=== PATIENT | female | born 1960 | race Caucasian/White ===

== ENCOUNTER 2017-03-31 01:19 | Inpatient (IN) | payer SELFPAY ==
[2017-03-31] VITALS (7 sets, daily range): BP systolic 144–167; BP diastolic 71–94
[~2017-03-31] VITALS: Ht 167.6 cm; Wt 52.8 kg
--- NOTE | 2017-03-31 03:20 | ED NURSING NOTES ---
Clinical Report - Nurses [facility] [place] [address] [place] [address] 03/31/2017 1:21 Patient: PEGGY RODRIGUEZ TRIAGE Triage time 01:25. Acuity: LEVEL 3. Chief Complaint: SHORTNESS OF BREATH. --01:37 Jacinta Paul R.N. 01:29 03/31/17. BP: 191/91. HR: 88. RR: 20. O2 saturation: 75% on room air. O2 started via nasal cannula at 2 liters/minute. Temp: 97.8 F (oral). Pain level now: 06/04. --01:37 Jacinta Paul R.N. Weight: 52.1 kg stated. Height/Length: 66 inches Per Patient. BMI: 18.5. --01:34 Jacinta Paul R.N. Medications None. --01:35 Jacinta Paul R.N. Allergies No Known Drug Allergy. --01:35 Jacinta Paul R.N. Levofloxacin. Definite Severe(itching) --03:05 Jacinta Paul R.N. History Arrived by private vehicle. Historian: patient. Accompanied by family. Primary physician (none). ( SOB last 2 days, cough for last week pain to right chest under breast). PAST MEDICAL HX: Immunizations: up-to-date. The patient is post-menopausal. SOCIAL HX: Light tobacco smoker (cigarette)- less than 1/2 a pack per day. Occasional alcohol use. No drug use. She has not traveled outside the [place] The patient was not exposed to tuberculosis, influenza, chicken pox, meningitis, MRSA, VRE, C-diff, SARS, Ian flu, H1N1 flu, Ebola or MERS. No infectious disease exposure. ABUSE ASSESSMENT: No report of abuse. SELF HARM ASSESSMENT: A self harm assessment was performed. The patient answered "no" to the question "Have you recently felt down, depressed, or hopeless?", "Have you noticed less interest or pleasure in doing things?", "Do you have thoughts of harming or killing yourself?", "Are you here because you tried to hurt yourself?", "Have you ever tried to hurt yourself before today?", "Have you recently had thoughts about harming or killing others?" and "Do you have any dangerous items in your possession?". FALL RISK ASSESSMENT: Fall risk assessment completed. No fall risk identified. NUTRITIONAL RISK ASSESSMENT: The nutritional risk assessment revealed no deficiencies. FUNCTIONAL ASSESSMENT: Functional assessment: no impairments noted. LEARNING NEEDS ASSESSMENT: The learning needs assessment revealed no barriers. SKIN INTEGRITY ASSESSMENT: Skin integrity risk assessment completed. No skin integrity risk identified. --01:37 Jacinta Paul R.N. PROBLEMS: Bronchitis. Corneal Ulcer. Tetanus Status. Wears Contacts. Corneal Abrasion. Hypertension. --01:35 Jacinta Paul R.N. ADDITIONAL SURGERIES: . --01:35 Jacinta Paul R.N. Interventions ID band on patient. --01:37 Jacinta Paul R.N. PHYSICAL ASSESSMENT Ambulatory to room. GENERAL / NEURO / PSYCH: Alert. Oriented X 4. Appears in distress. HEENT: Mucous membranes are pink. RESPIRATORY: Moderate respiratory distress. The patient can speak a few words at a time. Decreased breath sounds in the bases bilaterally. Fine crackles in the right mid-lung posteriorly. CVS: Normal sinus rhythm noted. Capillary refill less than 2 seconds. GI / : Abdomen soft and nontender. Bowel sounds within normal limits. SKIN: Skin is warm and dry. Normal skin turgor. --01:38 Jacinta Paul R.N. NURSING PROGRESS NOTES Oxygen administered by nasal cannula at 2 liters. Monitoring of patient in place. Patient gowned. Reassurance given to the patient. Two patient identifiers checked. Call light placed in reach. Side rails up x 1. Bed placed in lowest position. Brakes of bed on. Patient ready for evaluation- chart flagged. --01:39 Jacinta Paul R.N. 01:39 03/31/17. BP: 188/128 taken on the left arm, while lying. HR: 86 (regular and normal rate). RR: 22 (regular and unlabored). O2 saturation: 93% on nasal cannula at 2 liters/minute. Temp: deferred. Pain level now: 06/04. --01:40 Jacinta Paul R.N. 01:01 03/31/2017 Site #1 started via IV in the right antecubital space with an 18g angiocath, with aseptic technique and good blood return; one attempt. Blood drawn: rainbow set. Labeled in the presence of the patient and sent to the lab. Saline lock flushed with 10 mL saline. --02:01 Jacinta Paul R.N. 01:52 03/31/2017 Started bag #1 1000 mL IV Fluids IV NS (Saline); bolus of 1000 mL wide open then over 1 hour(s) via site #1. Allergies verified and confirmed 5 rights. IV patency established. IV site checked: no pain, redness, or swelling. IV flushed thoroughly pre- and post-medication administration. --02:02 Jacinta Paul R.N. 02:02 03/31/2017 Toradol IVP 30 mg given over 2 minute(s) via site #1. Allergies verified and confirmed 5 rights. IV patency established. IV site checked: no pain, redness, or swelling. IV flushed thoroughly pre- and post-medication administration. IVP given by RN. --02:02 Jacinta Paul R.N. 02:02 03/31/17. BP: 167/90 taken on the left arm, while lying. HR: 82. RR: 20 (regular, labored and rapid). O2 saturation: 94% on nasal cannula at 2 liters/minute. Temp: deferred. Pain level now: 06/04. --02:04 Jacinta Paul R.N. Patient ID band checked for patient name: patient confirmed. Blood samples drawn from the right antecubital space peripheral IV site by nurse per protocol ; labeled in presence of the patient and sent to lab: rainbow set: blood culture (1st set). Line flushed with 10 mL normal saline post blood draw. --02:04 Jacinta Paul R.N. Patient transported to radiology by stretcher with O2 and tech. (02:09). --02:11 Jacinta Paul R.N. 02:54 03/31/2017 IV Fluids IV NS Discontinued: bag #1 completed. Total amount infused: 1000 mL. IV patency established. IV site checked: no pain, redness, or swelling. IV flushed thoroughly. --02:54 Manasa Altamirano R.N. 02:55 03/31/2017 Started 750 mg of Levofloxacin IVPB in bag #1 150 mL; at 100 mL/hr over 90 minute(s) via site #1 via IV pump. Allergies verified and confirmed 5 rights. IV patency established. IV site checked: no pain, redness, or swelling. IV flushed thoroughly pre- and post-medication administration. --02:55 Manasa Altamirano R.N. 02:50 03/31/17. BP: 165/84. HR: 84. RR: 18. O2 saturation: 90% on nasal cannula at 1 liters/minute. Pain level now: 0/10. --02:57 Manasa Altamirano R.N. ( Patient requesting something to eat, oxygen increased back up to 3L). --02:58 Manasa Altamirano R.N. 03:02 03/31/2017 Levofloxacin IVPB Discontinued: STOPPED. Total amount infused: 7ml mL. IV patency established. IV site checked: no pain, redness, or swelling. IV flushed thoroughly. (pt c/o itching in mouth and face and arms, notified and orders recieved). --03:02 Jacinta Paul R.N. 03:03 03/31/2017 Benadryl (DiphenhydrAMINE HCl) IVP 25 mg given over 2 minute(s) via site #1. Allergies verified, confirmed 5 rights and sedative warning given to the patient. IV patency established. IV site checked: no pain, redness, or swelling. IV flushed thoroughly pre- and post-medication administration. IVP given by RN. --03:03 Jacinta Paul R.N. 04:17 03/31/2017 Started 250 mg of Azithromycin IVPB in bag #1 250 mL; at 250 mL/hr over 1 hour(s) via site #1 via IV pump. Allergies verified and confirmed 5 rights. IV patency established. IV site checked: no pain, redness, or swelling. IV flushed thoroughly pre- and post-medication administration. --04:17 Manasa Altamirano R.N. 04:17 03/31/17. BP: 156/91 (regular adult cuff) taken on the left arm. HR: 74. RR: 16. O2 saturation: 96% on nasal cannula at 3 liters/minute. Pain level now: 0/10. --04:18 Manasa Altamirano R.N. 04:00 03/31/17. BP: 156/91 taken on the left arm, while lying. HR: 79 (regular and normal rate). RR: 18 (regular and unlabored). O2 saturation: 93% on nasal cannula at 3 liters/minute. Temp: deferred. Pain level now: 0/10. --04:21 Jacinta Paul R.N. The patient is calm and resting quietly. Overall patient status is improved- she states feels better. RESPIRATORY: No respiratory distress. SKIN: Skin is warm and dry. Skin color within normal limits. --04:21 Jacinta Paul R.N. 04:27 03/31/2017 Azithromycin IVPB Continued: upon admission at the rate of 250 mL/hr. 250 mL remaining bag #1. IV patency established. IV site checked: no pain, redness, or swelling. IV flushed thoroughly. --04:27 Jacinta Paul R.N. 04:28 03/31/2017 Site #[address] upon admission; patent, no pain and no signs of infection or infiltration. Good blood return present. --04:28 Jacinta Paul R.N. DISPOSITION / DISCHARGE Transported via stretcher by [facility] with IV and O2. Report was given to a nurse via a phone call. Report included patient's care, treatment, medications, reviewed medication reconcilliation, and condition (including any recent changes or anticipated changes). All questions were answered. Report was acknowledged and care was transferred. (Lisa MCKEON). Bed obtained and ready (205). --04:31 Jacinta Paul R.N. 04:28 03/31/17. BP: 171/91 taken on the left arm, while lying. HR: 77 (regular and normal rate). RR: 18 (regular and unlabored). O2 saturation: 95% on nasal cannula at 3 liters/minute. Temp: deferred. Pain level now: 12/05. --04:31 Jacinta Paul R.N. Departure time: 04:39. --04:39 Jacinta Paul R.N. Departure time: 5. --04:53 Jacinta Paul R.N. 04:52 03/31/17. BP: deferred. HR: deferred. RR: deferred. O2 saturation: deferred. Temp: deferred. Pain level now deferred. --04:53 Jacinta Paul R.N. Locked/Released at 03/31/2017 4:54 by Jacinta Paul R.N.
--- NOTE | 2017-03-31 03:20 | ED CLINICAL REPORT ---
Clinical Report - Physicians/Mid Levels [facility] [address] [place] [address] 03/31/2017 1:21 Patient: PEGGY RODRIGUEZ Time Seen: 01:32; initial patient contact. Arrived- By private vehicle. Historian- patient. HISTORY OF PRESENT ILLNESS Chief Complaint: DYSPNEA. This started about 2 days ago and is still present. It was gradual in onset and has been constant. The dyspnea is described as moderate. The patient has had a cough and right-sided chest pain. No sputum production, fever, sweating episodes, wheezing or chills. No calf pain, foot swelling or palpitations. Similar symptoms previously: None. Recent medical care: Not recently seen/assessed. REVIEW OF SYSTEMS No nausea, vomiting or headache. All systems otherwise negative, except as recorded above. PAST HISTORY Bronchitis. Corneal Ulcer. Tetanus Status. Wears Contacts. Corneal Abrasion. Hypertension. ADDITIONAL SURGERIES: . SOCIAL HISTORY Current every day smoker. Occasional alcohol use. No drug use. ADDITIONAL NOTES The nursing notes have been reviewed. PHYSICAL EXAM Vital Signs: 03/31/2017 01:29 BP: 191/91. HR: 88. RR: 20. O2 saturation: 75%. Temp: 97.8 F. Pain level now: 8/10. Have been reviewed. Hypertensive. Heart rate normal. Respiratory rate normal. Temperature normal. Oxygen saturation low. Appearance: Alert. No acute distress. Eyes: Eyes normal inspection. ENT: Dry mucous membranes present. CVS: Normal heart rate and rhythm. Heart sounds normal. Respiratory: Mild respiratory distress with accessory muscle use. Mildly prolonged expirations. Moderate rales in the right lung base posteriorly. No decreased air movement or wheezes. Abdomen: Soft and nontender. No organomegaly. The bowel sounds are not abnormal. Back: Normal inspection. No CVA tenderness. Skin: Normal skin color. Extremities: No lower extremity edema. Neuro: Oriented X 3. LABS, X-RAYS, AND EKG Chest X-ray: Consolidated infiltrate in the right lower lobe. Consistent with pneumonia. Interpretation time: 02:33. Laboratory Tests: CBC w Diff: (ELLA: 03/31/2017 01:52) ( [facility] 03/31/2017 02:19) Final results Test Result Flag Units (Reference) WHITE BLOOD COUNT 14.7 H K/uL (4.5-11.5) RED BLOOD COUNT 5.01 M/uL (4.00-5.20) HEMOGLOBIN 16.0 gm/dL (12.0-16.0) HEMATOCRIT 47.8 H % (36.0-46.0) MEAN CELL VOLUME 96 fL (80-100) MEAN CORPUSCULAR HGB 32 pg (26-34) MEAN CORPUSCULAR HGB CONC 33 g/dL (31-37) RED CELL DISTRIBUTION WIDTH 14.6 % (11.6-14.8) PLATELET COUNT 327 K/uL (150-400) NEUTROPHIL % 80.5 H % (50-75) LYMPH % 11.3 L % (25-40) MONO % 7.5 % (3-14) EOSINOPHIL % 0.6 % (0-4) BASOPHIL % 0.1 % (0-2) [id number]: (ELLA: 03/31/2017 01:52) ( [facility] 03/31/2017 02:19) Final results Test Result Flag Units (Reference) D-DIMER QUANTITATIVE < 0.27 L ug/mLFEU (0.27-0.52) The primary value of this quantitative assay relates toits negative predictive value (i.e. exclusion) of pulmonaryembolism/deep vein thrombosis/DIC.Elevated levels of d-dimer may also occur with:, age, cancer, inflammation, liver disease,post-op, infection, hematoma, coronary disease, peripheralarteriopathy, bleeding disorders and thrombolytic treatment.Results should be correlated with other clinical andradiological data.Testing Methodology: Latex Immunoassay BNP: (ELLA: 03/31/2017 01:52) ( [facility] 03/31/2017 02:42) Final results Test Result Flag Units (Reference) B-TYPE NATRIURETIC PEPTIDE 18.2 pg/ml (5-100) [id number]: (ELLA: 03/31/2017 01:52) ( M[facility]cvd 03/31/2017 02:49) Final results Test Result Flag Units (Reference) LACTIC ACID SEPSIS PROTOCOL 0.8 mmol/L (0.4-2.0) [id number]: (ELLA: 03/31/2017 01:52) ( MsgRcvd 03/31/2017 02:41) Final results Test Result Flag Units (Reference) PROCALCITONIN < 0.05 ng/mL (0-0.5) PCT Concentration: Interpretation : Risk/option for action PCT <=0.5 ng/mL : Systemic : Low risk forinfection(sepsis): progression to severeis not likely. : systemic infection.Local bacterial : CAUTION-PCT levelsinfection is : below 0.5 ng/mL do notpossible. : exclude an infection,because localizedinfections (withoutsystemic signs) may beassociated with suchlow levels. If PCT ismeasured very earlyafter a bacterialchallenge (usually <6hours), these valuesmay still be low. Inthis case PCT shouldbe re-assessed 6-24hours later. PCT >0.5 and : Systemic infection: Moderate risk for<= 2 ng/mL : (sepsis) is : progression to severepossible, but : systemic infection.other conditions : The patient should beare known to : closely monitoredelevate PCT. : both clinically andby re-assessing PCTwithin 6-24 hours. PCT > 2 ng/mL : Systemic infection: High risk for(sepsis) is likely: progression to severeunless other : systemic infection.causes are known. : PCT >= 10 ng/mL : Important systemic: High likelihood ofinflammatory : severe sepsis orresponse, almost : septic shock.exclusively due to:severe bacterial :sepsis or septic :shock. : CMP: (ELLA: 03/31/2017 01:52) ( MsgRcvd 03/31/2017 02:34) Final results Test Result Flag Units (Reference) GLUCOSE 115 H mg/dL (70-110) BUN 28 H mg/dL (7-18) CREATININE 1.2 mg/dL (0.6-1.3) Estimated GFR 49.21 mL/min Estimated GFR- 59.65 mL/min Note: Persistent reduction over 3 months in eGFR<60 mL/min/1.73 m2 defines CKD. Patients with eGFR values>=60 mL/min/1.73 m2 may also have CKD if evidence ofpersistent proteinuria. Additional information may be foundat www.kidney.org. SODIUM 143 mmol/L (136-145) POTASSIUM 3.8 mmol/L (3.5-5.1) CHLORIDE 102 mmol/L (98-107) CARBON DIOXIDE 30 mmol/L (21-32) CALCIUM 9.2 mg/dL (8.5-10.1) TOTAL PROTEIN 7.6 g/dL (6.4-8.2) ALBUMIN 3.6 g/dL (3.3-5.0) BILIRUBIN, TOTAL 0.2 mg/dL (0.0-1.0) ALKALINE PHOSPHATASE 88 U/L (46-116) AST (SGOT) 15 U/L (15-37) ALT (SGPT) 19 U/L (12-78) . PROGRESS AND PROCEDURES Discussed case with hospitalist, (call returned 03:23 Dr. Andersen). Reviewed test results and need for additional work-up. Agreed upon decision to admit. Health care provider will see patient in ED. Disposition: Admitted to Acute Care. Condition: good. CLINICAL IMPRESSION Bacterial pneumonia with hypoxemia. Empiric antibiotics given in the ED. No respiratory failure or sepsis. Hypoxia. INSTRUCTIONS Your Current Medications: CONTINUE TAKING THE FOLLOWING MEDICATIONS: None*. Follow-up: Screening today revealed the patient's blood pressure to be in the hypertensive range. The patient was admitted and blood pressure will be managed during the admission. (Electronically signed by Elmo Juarez Dr. 03/31/2017 4:17)
--- NOTE | 2017-03-31 03:20 | ED ORDER SUMMARY ---
..... Patient: PEGGY RODRIGUEZ OrderSheet [facility] VisitID: [id number] [place] [address] 57y, F Registration Date/Time: 03/31/2017 ORDER SHEET Weight: 52.1 kg (stated) Allergies: No Known Drug Allergy, Levofloxacin GENERAL ORDERS: Chest 2V Urgent (01:03/31/2017 Susan Saxena) (Ack 1:56 Christina) (2:11 CBradburn R.N.) Blood Culture (No) (N/A) Urgent (:03/31/2017 Susan Saxena) (Ack 1:56 Christina) (2:00 CBradburn R.N.) CBC w Diff Urgent (:03/31/2017 Susan Saxena) (Ack 1:56 Chritsina) (2:00 Jhonyburn R.N.) CMP Urgent (:03/31/2017 Susan Saxena) (Ack 1:56 RKjessica) (2:00 ALEXANDRAradburn R.N.) D-Dimer Urgent (:03/31/2017 Susan Saxena) (Ack 1:56 Christina) (2:00 ALEXANDRAradburn R.N.) BNP Urgent (:03/31/2017 Susan Saxena) (Ack 1:56 Christina) (2:00 ALEXANDRAradburn R.N.) Lactic Acid for Sepsis Protocol Urgent (:03/31/2017 Susan Saxena) (Ack 1:56 Christina) (2:00 ALEXANDRAradburn R.N.) PCT (Procalcitonin) Urgent (:03/31/2017 Susan Saxena) (Ack 1:56 Christina) (2:00 ALEXANDRAradburn R.N.) MEDICATION ORDERS: IV FLUIDS: IV NS : initial bolus none -, then 1000 mL/hr for X1 (NOW) (01:03/31/2017 Susan Saxena) (2:01 Doug R.N.) Toradol IV 30 mg (NOW) (:03/31/2017 Susan Saxena) (2:02 Doug R.N.) Azithromycin IV 500 mg/250 mL (NOW) (02:41 03/31/2017 Susan Saxena) (Ack 2:45 Lindsey R.N.) (4:17 Lindsey R.N.) Levofloxacin IV 750 mg/150 mL (NOW) (02:41 03/31/2017 Susan Saxena) (Ack 2:45 Lindsey R.N.) (2:55 Santiagos R.N.) Benadryl IV 25 mg (NOW) (03:03 03/31/2017 Doug R.N. verbal order read back to Susan Saxena) (3:03 Doug Multani.) ORDER SHEET NOTES: [Electronically signed by Elmo Juarez Dr. (04:17 03/31/2017)] [Electronically signed by Jacinta Paul R.N. (04:54 03/31/2017)] [Electronically locked/signed by Jacinta Paul R.N. (04:54 03/31/2017)]
--- NOTE | 2017-03-31 03:20 | ED ORDER SUMMARY ---
..... Patient: PEGGY RODRIGUEZ OrderSheet [facility] VisitID: [id number] [place] [address] 57y, F Registration Date/Time: 03/31/2017 ORDER SHEET Weight: 52.1 kg (stated) Allergies: No Known Drug Allergy, Levofloxacin GENERAL ORDERS: Chest 2V Urgent (01:03/31/2017 Susan Saxena) (Ack 1:56 Christina) (2:11 CBradburn R.N.) Blood Culture (No) (N/A) Urgent (:03/31/2017 Susan Saxena) (Ack 1:56 Christina) (2:00 CBradburn R.N.) CBC w Diff Urgent (:03/31/2017 Susan Saxena) (Ack 1:56 Christina) (2:00 Jhonyburn R.N.) CMP Urgent (:03/31/2017 Susan Saxena) (Ack 1:56 RKjessica) (2:00 ALEXANDRAradburn R.N.) D-Dimer Urgent (:03/31/2017 Susan Saxena) (Ack 1:56 Christina) (2:00 ALEXANDRAradburn R.N.) BNP Urgent (:03/31/2017 Susan Saxena) (Ack 1:56 Christina) (2:00 ALEXANDRAradburn R.N.) Lactic Acid for Sepsis Protocol Urgent (:03/31/2017 Susan Saxena) (Ack 1:56 Christina) (2:00 ALEXANDRAradburn R.N.) PCT (Procalcitonin) Urgent (:03/31/2017 Susan Saxena) (Ack 1:56 Christina) (2:00 ALEXANDRAradburn R.N.) MEDICATION ORDERS: IV FLUIDS: IV NS : initial bolus none -, then 1000 mL/hr for X1 (NOW) (01:03/31/2017 Susan Saxena) (2:01 Doug R.N.) Toradol IV 30 mg (NOW) (:03/31/2017 Susan Saxena) (2:02 Doug R.N.) Azithromycin IV 500 mg/250 mL (NOW) (02:41 03/31/2017 Susan Saxena) (Ack 2:45 Lindsey R.N.) (4:17 Lindsey R.N.) Levofloxacin IV 750 mg/150 mL (NOW) (02:41 03/31/2017 Susan Saxena) (Ack 2:45 Lindsey R.N.) (2:55 Santiagos R.N.) Benadryl IV 25 mg (NOW) (03:03 03/31/2017 Doug R.N. verbal order read back to Susan Saxena) (3:03 Doug Multani.) ORDER SHEET NOTES: [Electronically signed by Elmo Juarez Dr. (04:17 03/31/2017)] [Electronically signed by Jacinta Paul R.N. (04:54 03/31/2017)] [Electronically locked/signed by Jacinta Paul R.N. (04:54 03/31/2017)]
--- NOTE | 2017-03-31 03:20 | ED CLINICAL REPORT ---
Clinical Report - Physicians/Mid Levels [facility] [address] [place] [address] 03/31/2017 1:21 Patient: PEGGY RODRIGUEZ Time Seen: 01:32; initial patient contact. Arrived- By private vehicle. Historian- patient. HISTORY OF PRESENT ILLNESS Chief Complaint: DYSPNEA. This started about 2 days ago and is still present. It was gradual in onset and has been constant. The dyspnea is described as moderate. The patient has had a cough and right-sided chest pain. No sputum production, fever, sweating episodes, wheezing or chills. No calf pain, foot swelling or palpitations. Similar symptoms previously: None. Recent medical care: Not recently seen/assessed. REVIEW OF SYSTEMS No nausea, vomiting or headache. All systems otherwise negative, except as recorded above. PAST HISTORY Bronchitis. Corneal Ulcer. Tetanus Status. Wears Contacts. Corneal Abrasion. Hypertension. ADDITIONAL SURGERIES: . SOCIAL HISTORY Current every day smoker. Occasional alcohol use. No drug use. ADDITIONAL NOTES The nursing notes have been reviewed. PHYSICAL EXAM Vital Signs: 03/31/2017 01:29 BP: 191/91. HR: 88. RR: 20. O2 saturation: 75%. Temp: 97.8 F. Pain level now: 8/10. Have been reviewed. Hypertensive. Heart rate normal. Respiratory rate normal. Temperature normal. Oxygen saturation low. Appearance: Alert. No acute distress. Eyes: Eyes normal inspection. ENT: Dry mucous membranes present. CVS: Normal heart rate and rhythm. Heart sounds normal. Respiratory: Mild respiratory distress with accessory muscle use. Mildly prolonged expirations. Moderate rales in the right lung base posteriorly. No decreased air movement or wheezes. Abdomen: Soft and nontender. No organomegaly. The bowel sounds are not abnormal. Back: Normal inspection. No CVA tenderness. Skin: Normal skin color. Extremities: No lower extremity edema. Neuro: Oriented X 3. LABS, X-RAYS, AND EKG Chest X-ray: Consolidated infiltrate in the right lower lobe. Consistent with pneumonia. Interpretation time: 02:33. Laboratory Tests: CBC w Diff: (ELLA: 03/31/2017 01:52) ( [facility] 03/31/2017 02:19) Final results Test Result Flag Units (Reference) WHITE BLOOD COUNT 14.7 H K/uL (4.5-11.5) RED BLOOD COUNT 5.01 M/uL (4.00-5.20) HEMOGLOBIN 16.0 gm/dL (12.0-16.0) HEMATOCRIT 47.8 H % (36.0-46.0) MEAN CELL VOLUME 96 fL (80-100) MEAN CORPUSCULAR HGB 32 pg (26-34) MEAN CORPUSCULAR HGB CONC 33 g/dL (31-37) RED CELL DISTRIBUTION WIDTH 14.6 % (11.6-14.8) PLATELET COUNT 327 K/uL (150-400) NEUTROPHIL % 80.5 H % (50-75) LYMPH % 11.3 L % (25-40) MONO % 7.5 % (3-14) EOSINOPHIL % 0.6 % (0-4) BASOPHIL % 0.1 % (0-2) [id number]: (ELLA: 03/31/2017 01:52) ( [facility] 03/31/2017 02:19) Final results Test Result Flag Units (Reference) D-DIMER QUANTITATIVE < 0.27 L ug/mLFEU (0.27-0.52) The primary value of this quantitative assay relates toits negative predictive value (i.e. exclusion) of pulmonaryembolism/deep vein thrombosis/DIC.Elevated levels of d-dimer may also occur with:, age, cancer, inflammation, liver disease,post-op, infection, hematoma, coronary disease, peripheralarteriopathy, bleeding disorders and thrombolytic treatment.Results should be correlated with other clinical andradiological data.Testing Methodology: Latex Immunoassay BNP: (ELLA: 03/31/2017 01:52) ( [facility] 03/31/2017 02:42) Final results Test Result Flag Units (Reference) B-TYPE NATRIURETIC PEPTIDE 18.2 pg/ml (5-100) [id number]: (ELLA: 03/31/2017 01:52) ( MsgRcvd 03/31/2017 02:49) Final results Test Result Flag Units (Reference) LACTIC ACID SEPSIS PROTOCOL 0.8 mmol/L (0.4-2.0) [id number]: (ELLA: 03/31/2017 01:52) ( MsgRcvd 03/31/2017 02:41) Final results Test Result Flag Units (Reference) PROCALCITONIN < 0.05 ng/mL (0-0.5) PCT Concentration: Interpretation : Risk/option for action PCT <=0.5 ng/mL : Systemic : Low risk forinfection(sepsis): progression to severeis not likely. : systemic infection.Local bacterial : CAUTION-PCT levelsinfection is : below 0.5 ng/mL do notpossible. : exclude an infection,because localizedinfections (withoutsystemic signs) may beassociated with suchlow levels. If PCT ismeasured very earlyafter a bacterialchallenge (usually <6hours), these valuesmay still be low. Inthis case PCT shouldbe re-assessed 6-24hours later. PCT >0.5 and : Systemic infection: Moderate risk for<= 2 ng/mL : (sepsis) is : progression to severepossible, but : systemic infection.other conditions : The patient should beare known to : closely monitoredelevate PCT. : both clinically andby re-assessing PCTwithin 6-24 hours. PCT > 2 ng/mL : Systemic infection: High risk for(sepsis) is likely: progression to severeunless other : systemic infection.causes are known. : PCT >= 10 ng/mL : Important systemic: High likelihood ofinflammatory : severe sepsis orresponse, almost : septic shock.exclusively due to:severe bacterial :sepsis or septic :shock. : CMP: (ELLA: 03/31/2017 01:52) ( MsgRcvd 03/31/2017 02:34) Final results Test Result Flag Units (Reference) GLUCOSE 115 H mg/dL (70-110) BUN 28 H mg/dL (7-18) CREATININE 1.2 mg/dL (0.6-1.3) Estimated GFR 49.21 mL/min Estimated GFR- 59.65 mL/min Note: Persistent reduction over 3 months in eGFR<60 mL/min/1.73 m2 defines CKD. Patients with eGFR values>=60 mL/min/1.73 m2 may also have CKD if evidence ofpersistent proteinuria. Additional information may be foundat www.[email or web address].org. SODIUM 143 mmol/L (136-145) POTASSIUM 3.8 mmol/L (3.5-5.1) CHLORIDE 102 mmol/L (98-107) CARBON DIOXIDE 30 mmol/L (21-32) CALCIUM 9.2 mg/dL (8.5-10.1) TOTAL PROTEIN 7.6 g/dL (6.4-8.2) ALBUMIN 3.6 g/dL (3.3-5.0) BILIRUBIN, TOTAL 0.2 mg/dL (0.0-1.0) ALKALINE PHOSPHATASE 88 U/L (46-116) AST (SGOT) 15 U/L (15-37) ALT (SGPT) 19 U/L (12-78) . PROGRESS AND PROCEDURES Discussed case with hospitalist, (call returned 03:23 Dr. Andersen). Reviewed test results and need for additional work-up. Agreed upon decision to admit. Health care provider will see patient in ED. Disposition: Admitted to Acute Care. Condition: good. CLINICAL IMPRESSION Bacterial pneumonia with hypoxemia. Empiric antibiotics given in the ED. No respiratory failure or sepsis. Hypoxia. INSTRUCTIONS Your Current Medications: CONTINUE TAKING THE FOLLOWING MEDICATIONS: None*. Follow-up: Screening today revealed the patient's blood pressure to be in the hypertensive range. The patient was admitted and blood pressure will be managed during the admission. (Electronically signed by Elmo Juarez Dr. 03/31/2017 4:17)
--- NOTE | 2017-03-31 04:54 | ED DISCHARGE INSTRUCTIONS ---
Patient: PEGGY RODRIGUEZ General Instructions [facility] VisitID: [id number] [place] [address] 57y, F Registration Date/Time: 03/31/2017 Bacterial pneumonia with hypoxemia. Empiric antibiotics given in the ED. No respiratory failure or sepsis. Hypoxia. INSTRUCTIONS Your Current Medications: CONTINUE TAKING THE FOLLOWING MEDICATIONS: None*. Follow-up: Screening today revealed the patient's blood pressure to be in the hypertensive range. The patient was admitted and blood pressure will be managed during the admission. (Electronically signed by Elmo Juarez Dr. 03/31/2017 4:17)
--- NOTE | 2017-03-31 04:54 | ED MAR SUMMARY ---
..... Medication Administration Record [facility] [address] [place] [address] Patient: PEGGY RODRIGUEZ Visit ID: [id number] 57y, F Weight: 52.1 kg Height/Length: 66 in BMI: 18.5 ALLERGIES: No Known Drug Allergy, Levofloxacin Start 01:52 03/31/2017 Jacinta Paul R.N., Stop 02:54 03/31/2017 Manasa Altamirano R.N. Medication Administered: IV NS (SALINE), Dose: IV Fluids over 1 hour(s), Bolus: 1000 mL wide open, Dispensed: 1000 mL bag, Site: #1 right AC. Medication Ordered: IV NS : initial bolus none -, then 1000 mL/hr for X1 (NOW). Given 02:02 03/31/2017 Jacinta Paul R.N. Medication Administered: TORADOL [IVP], Dose: 30 mg IVP over 2 minute(s), Site: #1 right AC. Medication Ordered: Toradol IV 30 mg (NOW). Start 02:55 03/31/2017 Manasa Altamirano R.N., Stop 03:02 03/31/2017 Jacinta Paul R.N. Medication Administered: LEVOFLOXACIN [IVPB], Dose: 750 mg IVPB over 90 minute(s), Rate: 100 mL/hr, Dispensed: 150 mL bag, Site: #1 right AC. Medication Ordered: Levofloxacin IV 750 mg/150 mL (NOW). Given 03:03 03/31/2017 Jacinta Paul R.N. Medication Administered: BENADRYL [IVP] (DIPHENHYDRAMINE HCL), Dose: 25 mg IVP over 2 minute(s), Site: #1 right AC. Medication Ordered: Benadryl IV 25 mg (NOW). Start 04:17 03/31/2017 Manasa Altamirano R.N., Continued Upon Admission 04:27 03/31/2017 Jacinta Paul R.N. Medication Administered: AZITHROMYCIN [IVPB], Dose: 250 mg IVPB over 1 hour(s), Rate: 250 mL/hr, Dispensed: 250 mL bag, Site: #1 right AC. Medication Ordered: Azithromycin IV 500 mg/250 mL (NOW).
--- NOTE | 2017-03-31 04:54 | ED MED RECONCILIATION SUMMARY ---
Patient: PEGGY RODRIGUEZ Medication Reconciliation Report [facility] VisitID: [id number] [address] [place] [address] 57y, F Registration Date/Time: 03/31/2017 Weight: 52.1 kg Height/Length: 66 in. BMI: 18.5 ALLERGIES: Levofloxacin, No Known Drug Allergy The patient's Home Medications are listed below: NONE. The source(s) of the original Home Medication information: Not obtained. The following Medications were given to the patient in the Emergency Department: IV NS IV Fluids bolus 1000 mL wide open, administered: 03/31/2017 1:52:00 AM Toradol [IVP] IVP 30 mg, administered: 03/31/2017 2:02:00 AM Levofloxacin [IVPB] IVPB bolus 0, then 750 mg 100 mL/hr, administered: 03/31/2017 2:55:00 AM Benadryl [IVP] IVP 25 mg, administered: 03/31/2017 3:03:00 AM Azithromycin [IVPB] IVPB bolus 0, then 250 mg 250 mL/hr, administered: 03/31/2017 4:17:00 AM The following Medications were prescribed to the patient: None.
--- NOTE | 2017-03-31 04:54 | ED MAR SUMMARY ---
..... Medication Administration Record [facility] [address] [place] [address] Patient: PEGGY RODRIGUEZ Visit ID: [id number] 57y, F Weight: 52.1 kg Height/Length: 66 in BMI: 18.5 ALLERGIES: No Known Drug Allergy, Levofloxacin Start 01:52 03/31/2017 Jacinta Paul R.N., Stop 02:54 03/31/2017 Manasa Altamirano R.N. Medication Administered: IV NS (SALINE), Dose: IV Fluids over 1 hour(s), Bolus: 1000 mL wide open, Dispensed: 1000 mL bag, Site: #1 right AC. Medication Ordered: IV NS : initial bolus none -, then 1000 mL/hr for X1 (NOW). Given 02:02 03/31/2017 Jacinta Paul R.N. Medication Administered: TORADOL [IVP], Dose: 30 mg IVP over 2 minute(s), Site: #1 right AC. Medication Ordered: Toradol IV 30 mg (NOW). Start 02:55 03/31/2017 Manasa Altamirano R.N., Stop 03:02 03/31/2017 Jacinta Paul R.N. Medication Administered: LEVOFLOXACIN [IVPB], Dose: 750 mg IVPB over 90 minute(s), Rate: 100 mL/hr, Dispensed: 150 mL bag, Site: #1 right AC. Medication Ordered: Levofloxacin IV 750 mg/150 mL (NOW). Given 03:03 03/31/2017 Jacinta Paul R.N. Medication Administered: BENADRYL [IVP] (DIPHENHYDRAMINE HCL), Dose: 25 mg IVP over 2 minute(s), Site: #1 right AC. Medication Ordered: Benadryl IV 25 mg (NOW). Start 04:17 03/31/2017 Manasa Altamirano R.N., Continued Upon Admission 04:27 03/31/2017 Jacinta Paul R.N. Medication Administered: AZITHROMYCIN [IVPB], Dose: 250 mg IVPB over 1 hour(s), Rate: 250 mL/hr, Dispensed: 250 mL bag, Site: #1 right AC. Medication Ordered: Azithromycin IV 500 mg/250 mL (NOW).
--- NOTE | 2017-03-31 04:54 | ED MED RECONCILIATION SUMMARY ---
Patient: PEGGY RODRIGUEZ Medication Reconciliation Report [facility] VisitID: [id number] [address] [place] [address] 57y, F Registration Date/Time: 03/31/2017 Weight: 52.1 kg Height/Length: 66 in. BMI: 18.5 ALLERGIES: Levofloxacin, No Known Drug Allergy The patient's Home Medications are listed below: NONE. The source(s) of the original Home Medication information: Not obtained. The following Medications were given to the patient in the Emergency Department: IV NS IV Fluids bolus 1000 mL wide open, administered: 03/31/2017 1:52:00 AM Toradol [IVP] IVP 30 mg, administered: 03/31/2017 2:02:00 AM Levofloxacin [IVPB] IVPB bolus 0, then 750 mg 100 mL/hr, administered: 03/31/2017 2:55:00 AM Benadryl [IVP] IVP 25 mg, administered: 03/31/2017 3:03:00 AM Azithromycin [IVPB] IVPB bolus 0, then 250 mg 250 mL/hr, administered: 03/31/2017 4:17:00 AM The following Medications were prescribed to the patient: None.
--- NOTE | 2017-03-31 04:54 | ED DISCHARGE INSTRUCTIONS ---
Patient: PEGGY RODRIGUEZ General Instructions [facility] VisitID: [id number] [place] [address] 57y, F Registration Date/Time: 03/31/2017 Bacterial pneumonia with hypoxemia. Empiric antibiotics given in the ED. No respiratory failure or sepsis. Hypoxia. INSTRUCTIONS Your Current Medications: CONTINUE TAKING THE FOLLOWING MEDICATIONS: None*. Follow-up: Screening today revealed the patient's blood pressure to be in the hypertensive range. The patient was admitted and blood pressure will be managed during the admission. (Electronically signed by Elmo Juarez Dr. 03/31/2017 4:17)
--- NOTE | 2017-03-31 06:48 | DIAGNOSTIC IMAGING REPORT ---
PROCEDURE: XR CHEST 2 VIEW INDICATION: SHORTNESS OF BREATH TECHNIQUE: PA and lateral views. COMPARISON: Compared to chest x-ray on 03/01/2015. FINDINGS: There moderate parenchymal changes in the lateral segment of the right middle lobe. Lungs are otherwise clear (although hyperexpanded). Heart and mediastinum are normal. Thorax is normal. IMPRESSION: 1. Mild to moderate parenchymal changes in the right middle lobe most compatible with pneumonia (e.g., bacterial, Mycoplasma). 2. Chronic obstructive pulmonary disease.
--- NOTE | 2017-03-31 08:13 | NUR ---
0500 Pt admitted from ED. Ambulated stretcher to bathroom & long O2 tubing placed on pt 3L. Admit hx done w/pt. J Luis patch order completed. 0700 IV ceftriaxone hung. No problems during this. Pt is somewhat drowsy, possibly d/t Benadryl in ED. She had expressed concern about "not wanting to be on a ventilator." Discussed this w/Dr. Bales & he will discuss code status w/pt. Day RN aware of this as well.
--- NOTE | 2017-03-31 09:40 | HISTORY AND PHYSICAL ---
ADMITTED: 03/31/2017 CHIEF COMPLAINT: 1. Shortness of breath HISTORY OF PRESENT ILLNESS: This is a 57-year-old white female who started to have a cough 4 days ago with sputum and shortness of breath without any chest pain. The patient had no fever, no chills, and this progressively became worse and worse to the point that the patient had to come to the hospital. She became weak and unable to ambulate. MEDICAL/SURGICAL HISTORY: Past medical history is remarkable for hypertension. Surgical history is remarkable for . Hospitalization: The last one was 20 years ago for a . MEDICATIONS: 1. None. ALLERGIES: 1. NO KNOWN DRUG ALLERGY, EXCEPT LEVAQUIN, WHICH HAD ITCHING REACTION RIGHT NOW IN THE EMERGENCY DEPARTMENT. SOCIAL HISTORY: The patient is , has 3 kids. Lives alone. Smokes 1 pack a day for 30 years. Drinks alcohol only on social basis. No history of drug abuse. FAMILY HISTORY: Remarkable for hypertension and stroke. REVIEW OF SYSTEMS: No recent weight changes. No difficulty with vision or hearing. Complains of runny nose and congestion and sore throat. No nausea, no vomiting, no indigestion. No abdominal pain. Normal regular bowel movements. No dysuria, frequency or incontinence. No arthralgia or myalgia. No headaches. No dizziness. No tingling. No numbness. No localized weakness. No syncope. PHYSICAL EXAMINATION: VITAL SIGNS: Blood pressure 191/91, heart rate is 88, respirations 20, oxygen saturation was 75% on room air, and temperature is 97.8. GENERAL APPEARANCE: Well developed, well nourished, good body build, no acute distress at this moment on nasal cannula oxygen. HEAD AND NECK: Ears: Normal tympanic membranes. Mouth: Normal hypopharynx, no exudation, no erythema. Nose: Normal mucosa. Eyes: The patient has congestion conjunctivae bilaterally. LUNGS: Clear to auscultation. No rhonchi or wheezing or crackles. HEART: Regular S1, S2. No murmur. No S3 was heard. ABDOMEN: Soft, nontender. Bowel sounds are positive. EXTREMITIES: No edema. Good peripheral pulses. No signs of DVT or cyanosis. MUSCULOSKELETAL: Grossly within normal limits. NEUROLOGIC: Alert and oriented x3. Cranial nerves are grossly intact. No motor deficits. Pupils are equal, round, and reactive to light. Extraocular movements are intact. No nystagmus. No cerebellar signs. Deep tendon reflexes are bilateral and symmetric. LAB/IMAGING: Chest x-ray shows right lower lobe infiltrate. White blood count is 14.7, hemoglobin is 16, hematocrit 47.8, and platelet count is 327. D-dimer is less than 0.27. BNP is 18.2. Lactic acid 0.8, procalcitonin is less than 0.05. Glucose is 115, BUN is 28, creatinine is 1.2, sodium is 143, potassium 3.8, chloride is 102, CO2 is 30, calcium is 9.2. Liver enzymes unremarkable. IMPRESSION: 1. Right lower lobe pneumonia 2. Conjunctivitis 3. Hypertension PLAN: The patient will be admitted to acute care inpatient. We will start the patient on IV Rocephin, along with Zithromax. The patient had a reaction to Levaquin. Also we will put the patient on lisinopril 10 mg twice a day for blood pressure control and IV hydration and also the patient will be given Bleph-10 for the eyedrops for her conjunctivitis. Blood culture was sent in the emergency department.
--- NOTE | 2017-03-31 20:14 | NUR ---
PATIENT RESTING IN ROOM NOW. WAS TOLD DR WAS AWARE OF CURRENT LAB VALUES. CALLED DR MELÉNDEZ TO SEE IN HE WANTED TO ORDER ANY DVT PREVETION. HE JUST SAID TO TRY AND GET PATIENT UP AND AMBULATING. SHE HAS BEEN UP WALKING AROUND HER ROOM TODAY.
--- NOTE | 2017-03-31 22:40 | NUR ---
CALLED DR MELÉNDEZ AND TOLD HIM ABOUT PATIETNS HIGH BLOOD PRESSURE AND TEMPERATURE.
[2017-04-01] VITALS (8 sets, daily range): BP systolic 124–178; BP diastolic 74–93
--- NOTE | 2017-04-01 03:10 | NUR ---
Pt. becomes SOB with exertion, 02 sats went into mid 80's while ambulating to bathroom. Sats went into mid 90's when she sat back down in bed. Denies SOB at rest. Pt. received sleep medication. Pt. is on 2 L 02 per nasal cannula. WCTM.
--- NOTE | 2017-04-01 08:52 | NUR ---
RECEIVED PT ASLEEP, LETHARGIC BUT EASILY AROUSED. ANSWER QUESTIONS APPROPRIATELY BUT WENT BACK TO SLEEP. DUE MEDS GIVEN. PT UNDERSTOOD.
--- NOTE | 2017-04-01 10:18 | NUR ---
RECEIVED PT IN BED, AWAKE, ALERT, ORIENTED, COHERENT, COOPERATIVE. VS TAKEN AND RECORDED. ASSESSMENT DONE. PT DENIES ANY PAIN AT THIS TIME. POOR APPETITE NOTED. POOR APPETITE NOTED. OFFERED BOOST BUT PT DECLINED AT THIS TIME. THEN ASSISTED BY MS PAUL TO THE BATHROOM, TOLERATED IT GOOD. WASHED HER FACE AND HANDS. DUE MEDS GIVEN. ENC PT TO AMBULATE, INCREASED IN FLUID INTAKE. NEEDS ATTENDED.
--- NOTE | 2017-04-01 11:45 | NUR ---
WEAN OFF FROM O2 2L. AT 1200 O2 SAT ON RA, WHILE IN BED, ON HIGH HARDY'S POSITION, ASLEEP IS 76%. INFUSED O2 AT 2L. AT 1205 O2 SAT ON 2L IS AT 92% WHILE IN BED, ASLEEP ON HIGH FOLWER'S POSITION.
--- NOTE | 2017-04-01 13:59 | Progress Note ---
Subjective General Patient seen and examined. Patient has no complaints and no acute events overnight. Patient is very sedated and is not getting up out of bed for a prolonged period of time. We'll hold any sort of sedation for tonight unless absolutely necessary. If patient continues on current course will consider discharge tomorrow. Constitutional Denies: Fever, Chills, Sweats, Weakness, Malaise, Other. Eyes Denies: Pain, Vision Change, Conjunctival Inflammation, Eyelid Inflammation, Redness, Other. Respiratory Cough, SOB w/exertion. Denies: Dry, Wheezing, Hemoptysis, Pleuritic Pain, Sputum, Other. Cardiovascular Denies: Chest Pain, Palpitations, Orthopnea, PND, Edema, Light-headedness, Other. Gastrointestinal Denies: Nausea, Vomiting, Abdominal Pain, Diarrhea, Constipation, Melena, Hematochezia, Other. Genitourinary Denies: Dysuria, Frequency, Incontinence, Hematuria, Retention, Other. Musculoskeletal Denies: Neck Pain, Shoulder Pain, Arm Pain, Back Pain, Hand Pain, Leg Pain, Foot Pain, Other. Skin Denies: Rash, Lesions, Jaundice, Bruising, Other. Neurological Denies: Weakness, Numbness, Incoordination, Change in speech, Confusion, Seizures, Other. Physical Exam Vital Signs / I&Os Vital Signs Date Time Temp Pulse Resp B/P Pulse O2 O2 Flow FiO2 Ox Delivery Rate 04/01 1055 97.9 76 20 138/86 97 Nasal 2.0 Cannula 04/01 1027 Nasal 2.0 Cannula 04/01 1007 97.9 67 18 157/91 98 Nasal 3.0 Cannula 04/01 0749 3.0 04/01 0742 97.5 66 22 124/75 96 Nasal 3.5 Cannula 04/01 0320 98.1 68 18 158/87 96 Nasal 2.0 Cannula 04/01 0259 2.0 04/01 0008 81 178/84 06 2226 99.1 78 22 163/94 93 Nasal 2.0 Cannula 03/31 2048 80 98 163/85 06 1834 99.3 77 20 144/71 94 Nasal 2.0 Cannula 03/31 1445 98.4 75 22 157/85 94 Nasal 3.0 Cannula I&O 03/31 0800 06/06 1600 04/01 0000 Intake Total 630 Output Total 300 300 975 Balance -300 -300 -345 General Appearance Alert, Oriented X3, No acute distress HEENT Atraumatic, Moist mucous membranes Lungs Clear to auscultation Cardiovascular Regular rate and rhythm, Normal S1 and S2, No murmurs, gallops, rubs Abdomen Soft, No tenderness Extremities No clubbing, No edema, Normal pulses Skin No Breakdown Neurological Normal speech, Sensation intact, Cranial nerves intact Psych/Mental Status Mood normal LAB Results Laboratory Tests 04/01 0535 Chemistry Plasma Sodium (136 - 145 mmol/L) 143 Plasma Potassium (3.5 - 5.1 mmol/L) 3.8 Plasma Chloride (98 - 107 mmol/L) 107 CO2 (Enzymatic) (21 - 32 mmol/L) 28 BUN (7 - 18 mg/dL) 14 Creatinine (0.6 - 1.3 mg/dL) 0.9 Est GFR ( Amer) (mL/min) >60 Est GFR (Non-Af Amer) (mL/min) >60 Glucose (70 - 110 mg/dL) 133 Plasma Calcium (8.5 - 10.1 mg/dL) 8.4 Hematology WBC (4.5 - 11.5 K/uL) 7.1 RBC (4.00 - 5.20 M/uL) 4.25 Hgb (12.0 - 16.0 gm/dL) 13.5 Hct (36.0 - 46.0 %) 41.1 MCV (80 - 100 fL) 97 MCH (26 - 34 pg) 32 RDW (11.6 - 14.8 %) 14.5 Neut % (Auto) (50 - 75 %) 62.9 Lymph % (Auto) (25 - 40 %) 25.8 Garden % (Auto) (3 - 14 %) 8.7 Eos % (Auto) (0 - 4 %) 2.1 Baso % (Auto) (0 - 2 %) 0.5 Plt Count, EDTA (150 - 400 K/uL) 277 PUBS MCHC (31 - 37 g/dL) 33 Assessment and Plan Problem List 1. Pneumonia Plan Patient is improving significantly Patient has a normal white count at the moment Patient is still becoming short of breath on ambulation We'll gradually titrate down oxygen for the next day Will advise patient to ambulate as much as possible We'll hold sedation unless absolutely next necessary If patient continues on concurrent trajectory and DC by tomorrow 2. Hypoxia Plan Patient is not exhibiting maicol hypoxia We'll continue with 2 L nasal cannula We'll titrate oxygen down over the course of the next 24 hours Will not anticipate patient going home with oxygen
--- NOTE | 2017-04-01 14:05 | NUR ---
PT SLEPT MOST OF THE DAY. PT NEEDS ENCOURAGEMENT IN SITTING UP IN THE CHAIR AND AMBULATE.
--- NOTE | 2017-04-01 15:34 | NUR ---
patient care assumed. she is alert, oriented. denies pain. reports freq cough and SOB with exertion. lungs very dimished today. Pt requesting breathing treatment. Will notify MD. Discussed smoking cessation with patient. encouraged IS and ambulation. pt was unable to tolerate room air earlier today. she is on 2L currently, 92%
[2017-04-02] VITALS (8 sets, daily range): BP systolic 170–202; BP diastolic 85–107
--- NOTE | 2017-04-02 04:53 | NUR ---
Pt. has been resting in bed throughout the night. Eye drops in eyes every 2 hours. Pt. requested something for sleep, called Dr. Andersen and obtained order for benadryl PO, administered and effective. Pt. compliant with using IS. Call light within reach. Pt. has been wanting to keep SCD's off, educated pt. regarding the reason for SCD's to prevent DVTs, pt. continued to refuse. WCTM.
--- NOTE | 2017-04-02 07:35 | NUR ---
Notified MD of BP 202/102. Pt. was coughing quite a bit before, 202/102 was a manual reading. Per Dr. Bales, recheck and notify if systolic is above 170.
--- NOTE | 2017-04-02 09:56 | NUR ---
Nutrition Note: Pt admitted to 03/31/17 w/ pneumonia. Pt's wt 52.8kg, BMI 18.7 (low end of normal.) Pt on general diet. PO intake varies since admit and may be inadequate for nutritional needs. PO 03/31: 50% lunch, 80% dinner, 04/01: 0% bkfst, 30% lunch, 100% dinner, 04/02: 10% Bkfst. Recommend continue general diet. Pt could benefit from mighty shakes between meals BID to prevent wt loss during healing. RD will continue to follow for additional nutrition needs/per protocol.
--- NOTE | 2017-04-02 15:26 | Progress Note ---
Subjective General Patient seen and examined. Patient is doing much better compared to yesterday. Patient however is found to have significant hypertension. 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 Patient otherwise is in good health Constitutional Denies: Fever, Chills, Sweats, Weakness, Malaise, Other. Eyes Denies: Pain, Vision Change, Conjunctival Inflammation, Eyelid Inflammation, Redness, Other. Respiratory Cough, SOB w/exertion. Denies: Dry, Wheezing, Hemoptysis, Pleuritic Pain, Sputum, Other. Cardiovascular Denies: Chest Pain, Palpitations, Orthopnea, PND, Edema, Light-headedness, Other. Gastrointestinal Denies: Nausea, Vomiting, Abdominal Pain, Diarrhea, Constipation, Melena, Hematochezia, Other. Genitourinary Denies: Dysuria, Frequency, Incontinence, Hematuria, Retention, Other. Musculoskeletal Denies: Neck Pain, Shoulder Pain, Arm Pain, Back Pain, Hand Pain, Leg Pain, Foot Pain, Other. Skin Denies: Rash, Lesions, Jaundice, Bruising, Other. Neurological Denies: Weakness, Numbness, Incoordination, Change in speech, Confusion, Seizures, Other. Physical Exam Vital Signs / I&Os Vital Signs Date Time Temp Pulse Resp B/P Pulse O2 O2 Flow FiO2 Ox Delivery Rate 04/02 1431 98.4 87 18 187/102 94 Room Air / 1312 98 06/08 0959 98.4 75 18 178/97 94 Nasal 1.5 Cannula 04/02 0850 Nasal 1.5 Cannula 04/02 0813 1.5 04/02 0748 192/102 06/08 0710 202/102 06/08 0700 97.7 89 21 92 Nasal 1.5 Cannula /08 0446 1.5 06/08 0430 98.6 64 16 175/85 96 Nasal 1.5 Cannula 06/ 2333 98.4 80 18 174/84 94 Nasal 1.5 Cannula 06/ 1957 2.0 06/07 1821 97.5 83 18 159/74 95 Nasal 2.0 Cannula 06/07 1541 2.0 I&O 06/07 0800 06/07 1600 06/08 0000 Intake Total 2695 1117 600 Output Total 1050 700 Balance 2695 67 -100 General Appearance Alert, Oriented X3, No acute distress HEENT Atraumatic, PERRLA Lungs - bilaeral wheezes Neck No JVD, No masses Cardiovascular Regular rate and rhythm, No murmurs, gallops, rubs Abdomen Soft, No tenderness Extremities No edema, Normal pulses Skin No Breakdown Neurological Normal tone, Cranial nerves intact, No lateralizing signs Psych/Mental Status Mood normal LAB Results Laboratory Tests 04/02 0725 Hematology WBC (4.5 - 11.5 K/uL) 6.9 RBC (4.00 - 5.20 M/uL) 4.42 Hgb (12.0 - 16.0 gm/dL) 14.1 Hct (36.0 - 46.0 %) 42.5 MCV (80 - 100 fL) 96 MCH (26 - 34 pg) 32 RDW (11.6 - 14.8 %) 13.9 Neut % (Auto) (50 - 75 %) 53.9 Lymph % (Auto) (25 - 40 %) 32.3 [place] % (Auto) (3 - 14 %) 10.0 Eos % (Auto) (0 - 4 %) 3.3 Baso % (Auto) (0 - 2 %) 0.5 Plt Count, EDTA (150 - 400 K/uL) 289 PUBS MCHC (31 - 37 g/dL) 33 Assessment and Plan Problem List 1. Pneumonia Plan Patient is pneumonia is improving Patient has negative probe calcitonin negative white blood cell count Patient however has persistent wheezes and shortness breath on exertion Patient may have undiagnosed reactive airway disease We'll start DuoNeb's every 6 hours when necessary for wheezing Will titrate down steroids as needed Will ambulate the patient without nasal cannula to see patient to saturate's We'll potentially sent home patient with albuterol treatment 2. Hypoxia Plan Patient is able to ambulate without oxygen on room air Patient's saturation was seen to be 98% Patient will not have to go home with oxygen 3. Hypertension Plan Patient was seen to be hypertensive this morning Patient was in the 190s systolic after a coughing fit Patient's blood pressure did not resolve throughout the day Patient was started on lisinopril 20 mg Will additionally add metoprolol 12.5 mg twice a day The patient's blood pressure controlled throughout the day we'll consider discharge in the evening
--- NOTE | 2017-04-02 20:12 | NUR ---
I discussed with the patient their current medications, possible side effects, and answered questions.
--- NOTE | 2017-04-02 20:59 | NUR ---
Patient decided to discharge herself against medical advice despite staff's concerns with regards to her BP. Hospitalist has been informed. light industrial supervisor has given her advice to attend clinic as soon as possible or to even go back to ED if her condition worsens. Form has been signed and she was accompanied by the CALCIMINER to the lobby.
== END 2017-04-02 20:59 | disposition left against medical advice (07) | DRG 139 ==
LOC: ED SRH 01:19 → TRANS SRH 03:25 → ACUTE2 SRH 03:25 → TRANS SRH 03:25 → ACUTE2 SRH 04:59
PROVIDERS: ADMIT Neuromusculoskeletal Medicine, Sports Medicine
DX: J18.9 Pneumonia, unspecified organism (principal); R09.02 Hypoxemia; H10.9 Unspecified conjunctivitis; L29.9 Pruritus, unspecified; T37.8X5A Adverse effect of other specified systemic anti-infectives and antiparasitics, initial encounter; I10 Essential (primary) hypertension; F17.210 Nicotine dependence, cigarettes, uncomplicated